=== PATIENT | male | born 1970 | race Caucasian/White ===

== ENCOUNTER → 2024-08-23 | Outpatient (RCR) | payer BC ==
[~2024-08-23] MED LIST: CEPHALEXIN500 MG PO; CLINDAMYCIN150 MG/ML PO; COUMADIN3 MG PO; HYDROCODONE PO; IBUPROFEN PO; KEFLEX500 MG PO; LOVENOX40 MG/0.4 SQ; NORCO 5-325 TA1 EACH PO; TESSALON PERLE100 MG PO; TYLENOL WITH C1 EACH PO; XARELTO15 MG PO
== END ==
LOC: OT 08-08 14:40
PROVIDERS: ATTEND Specialist
DX: M75.82 Other shoulder lesions, left shoulder (principal); M75.81 Other shoulder lesions, right shoulder; M25.512 Pain in left shoulder; M25.511 Pain in right shoulder; M25.612 Stiffness of left shoulder, not elsewhere classified; M25.611 Stiffness of right shoulder, not elsewhere classified; R53.1 Weakness

== ENCOUNTER 2024-09-21 15:00 | Outpatient (RCR) | payer BC | END 2024-09-23 | LOC: OT 15:00 | PROVIDERS: ATTEND Specialist | DX: M77.8 Other enthesopathies, not elsewhere classified (principal); M25.512 Pain in left shoulder; M25.511 Pain in right shoulder; M75.82 Other shoulder lesions, left shoulder; M25.611 Stiffness of right shoulder, not elsewhere classified; M25.612 Stiffness of left shoulder, not elsewhere classified; R53.1 Weakness ==

== ENCOUNTER 2024-10-19 15:00 | Outpatient (RCR) | payer BC | END 2024-10-21 | LOC: OT 15:00 | PROVIDERS: ATTEND Specialist | DX: M75.82 Other shoulder lesions, left shoulder (principal); M75.81 Other shoulder lesions, right shoulder; M25.511 Pain in right shoulder; M25.512 Pain in left shoulder; M25.611 Stiffness of right shoulder, not elsewhere classified; M25.612 Stiffness of left shoulder, not elsewhere classified; R53.1 Weakness ==

== ENCOUNTER 2024-10-26 15:00 | Outpatient (RCR) | payer BC | END 2024-11-21 | LOC: OT 15:00 | PROVIDERS: ATTEND Specialist | DX: M65.812 Other synovitis and tenosynovitis, left shoulder (principal); M65.811 Other synovitis and tenosynovitis, right shoulder ==